=== PATIENT | female | born 1975 | race Caucasian/White ===

== ENCOUNTER 2023-12-03 16:07 | Outpatient (OUT) | payer BC, SELFPAY ==
--- NOTE | 2023-12-03 16:17 | XR_ITS ---
The [address] [address] Patient Name: SEE MACIEL MRN: [id number] date: 1975 Sex: F Assigned Patient Location: [facility] Current Patient Location: Accession/Order Number: [id number] Exam Date: 12/03/2023 16:18 Report Date: 12/04/2023 07:59 At the request of: NON-STAFF PHYSICIAN Procedure: XR lumbar spine 6V w bending EXAMINATION: XR lumbar spine 6V w bending HISTORY: lumbar back pain COMPARISON: No relevant comparison available. FINDINGS: BONES: Neutral projection demonstrates normal alignment with no acute fracture or spondylolisthesis. Minimal degenerative spondylosis. Moderate facet osteoarthropathy DISC SPACES: Normal. No significant disc height narrowing, subluxation, or endplate abnormality. PARASPINOUS: Negative. No paraspinous abnormality is seen. OTHER: No transient spondylolisthesis with flexion or extension. IUD in the pelvis. Moderate amount of stool right colon XR/XR lumbar spine 6V w bending IMPRESSION: Mild degenerative changes No dynamic instability Electronically authenticated by: MIRIAN HUIZAR Date: 12/04/2023 07:59
== END 2023-12-03 16:08 | disposition home or self-care (01) ==
LOC: RAD 16:12
DX: M54.50 Low back pain, unspecified (principal)
CPT/HCPCS: 72114

== ENCOUNTER 2024-12-23 16:11 | Outpatient (OUT) | payer BC, SELFPAY ==
--- NOTE | 2024-12-23 | XR_ITS ---
[place] [id number] Patient Name: SEE MACIEL MRN: [id number] date: 1975 Sex: F Assigned Patient Location: LAB Current Patient Location: LAB Accession/Order Number: [id number] Exam Date: 12/23/2024 16:52 Report Date: 12/23/2024 16:53 At the request of: CHRISTI GRUBER NP Procedure: XR knee RT 4V 4 views right knee plain film COMPARISON: None HISTORY: Right knee pain for one year ACUTE FINDINGS: No acute findings DEGENERATIVE CHANGE: Mild SOFT TISSUE FINDINGS: Unremarkable JOINT EFFUSION: None POSTOP CHANGES: None BONE MINERALIZATION: Adequate XR/XR knee RT 4V IMPRESSION: Mild degeneration Impression dictated by: Darien Miller M.D. 12/23/2024 4:53 PM Dictation Location: [place] [address] Electronically authenticated by: [id number] Y Date: 12/23/2024 16:53
--- OUTSIDE RECORDS SUMMARY | 2024-12-23 15:24 | XMS_ITS ---
Author Name Auto Generated Organization [facility] Care Team Providers Care Music Pastor Name Role Phone JAYLEEN GRUBER Attending Unavailabl JAYLEEN Reed Attending Unavaildarleen coy PROBLEMS No Problem Records Found PROCEDURES No Procedure Records Found RESULTS PATIENT EDUCATION Observed: 12/23/2024 4:20 PM Status: C Source: [facility] Patient Education Orthopedics How to Use Cold Therapy Cold therapy, or cryotherapy, is a treatment that uses cold temperatures to treat an injury or medical condition. It includes using cold packs or ice packs to reduce pain and swelling. Only use cold therapy if your doctor says it is okay. What are the risks? Generally, cold therapy is a safe treatment. However, it is not safe for: ??? People who are not able to say they are in pain. These include small children and people who have memory problems. ??? People who have certain conditions, such as: ? A problem in the vessels that slows blood flow to the fingers and toes (Raynaud's syndrome). ? Feeling very cold easily (cold hypersensitivity). ? Lack of feeling in the area being iced. Cold therapy may not be safe for people who have other conditions. Do not use it without talking to your doctor if you have: ??? A heart condition. ??? High blood pressure. ??? Open or healing wounds. ??? An infection. ??? Pain and swelling in your joints (rheumatoid arthritis). ??? Poor blood flow in the body. ??? Diabetes. ??? Certain skin conditions. How do I make a cold pack? When using a cold pack at home to reduce pain and swelling, you can use: ??? A silica gel cold pack that has been left in the freezer. You can buy this online or in stores. ??? A sealable plastic bag that has been filled with crushed ice. ??? A washcloth or paper towels soaked in cold water or ice water. ??? A plastic bag of frozen vegetables. Throw them away when you are finished using them as a cold pack. Supplies needed: ??? A cold pack. ??? A towel. This can be dry or damp, based on what you like. How to use cold therapy 1. Have your cold pack ready. 2. Place a towel between the cold pack and your skin. You may also wrap the cold pack in a towel. 3. Put the cold pack on the affected area. Keep it on for no more than 20 minutes at a time. 4. Check your skin after 5 minutes to make sure that there is no damage to the area. Check for: ??? White spots on your skin. Your skin may look blotchy or mottled. ??? Skin that looks blue or pale. ??? Skin that feels waxy or hard. 5. Repeat these steps as many times each day as told by your doctor. Take off the ice if your skin turns bright red. This is very important. If you cannot feel pain, heat, or cold, you have a greater risk of damage to the area. Always use a towel to avoid direct contact with your skin. Contact a doctor if: ??? You start to have white spots on your skin. This may give your skin a blotchy or mottled look. ??? Your skin turns blue or pale. ??? Your skin becomes waxy or hard. ??? Your swelling gets worse. Summary ??? Cold therapy, or cryotherapy, is used to treat an injury or other conditions. It includes using cold packs or ice packs to reduce pain and swelling. ??? Cold therapy is not safe for people who are not able to say they are in pain. ??? When using cold packs or ice packs, always place a towel between the cold source and your skin. ??? Check your skin after 5 minutes of icing it. This is to make sure that there is no skin damage. ??? Contact your doctor if you notice changes in your skin or your swelling gets worse. This information is not intended to replace advice given to you by your health care provider. Make sure you discuss any questions you have with your health care provider. Document Revised: 06/06/2021 Document Reviewed: 06/06/2021 [employer] Patient Education ? 2023 [employer].Chronic Knee Pain, Adult Knee pain that lasts longer than 3 months is called chronic knee pain. You may have pain in one or both knees. Symptoms of chronic knee pain may also include swelling and stiffness. The most common cause is age-related wear and tear (osteoarthritis) of your knee joint. Many conditions can cause chronic knee pain. Treatment depends on the cause. The main treatments are physical therapy and weight loss. It may also be treated with medicines, injections, a knee sleeve or brace, and by using crutches. Rest, ice, pressure (compression), and elevation, also known as RICE therapy, may also be recommended. Follow these instructions at home: If you have a knee sleeve or brace: ??? Wear the knee sleeve or brace as told by your doctor. Take it off only as told by your doctor. ??? Loosen it if your toes: ? Tingle. ? Become numb. ? Turn cold and blue. ??? Keep it clean. ??? If the sleeve or brace is not waterproof: ? Do not let it get wet. ? Ask your doctor if you may take it off when you take a bath or shower. If not, cover it with a watertight covering. Managing pain, stiffness, and swelling ??? If told, put heat on your knee. Do this as often as told by your doctor. Use the heat source that your doctor recommends, such as a moist heat pack or a heating pad. ? If you have a removable knee sleeve or brace, take it off as told by your doctor. ? Place a towel between your skin and the heat source. ? Leave the heat on for 20?30 minutes. ? Take off the heat if your skin turns bright red. This is very important. If you cannot feel pain, heat, or cold, you have a greater risk of getting burned. ??? If told, put ice on your knee. To do this: ? If you have a removable knee sleeve or brace, take it off as told by your doctor. ? Put ice in a plastic bag. ? Place a towel between your skin and the bag. ? Leave the ice on for 20 minutes, 2?3 times a day. ? Take off the ice if your skin turns bright red. This is very important. If you cannot feel pain, heat, or cold, you have a greater risk of damage to the area. ??? Move your toes often. ??? Raise the injured area above the level of your heart while you are sitting or lying down. Activity ??? Avoid activities where both feet leave the ground at the same time (high- impact activities). Examples are running, jumping rope, and doing jumping jacks. ??? Follow the exercise plan that your doctor makes for you. Your doctor may suggest that you: ? Avoid activities that make knee pain worse. You may need to change the exercises that you do, the sports that you participate in, or your job duties. ? Wear shoes with cushioned soles. ? Avoid sports that require running and sudden changes in direction. ? Do exercises or physical therapy. This is planned to match your needs and your abilities. ? Do exercises that increase your balance and strength, such as kiki chi and yoga. ??? Do not use your injured knee to support your body weight until your doctor says that you can. Use crutches as told by your doctor. ??? Return to your normal activities when your doctor says that it is safe. General instructions ??? Take xtsp-gsh-cumzkeg and prescription medicines only as told by your doctor. ??? If you are overweight, work with your doctor and a food expert (dietitian) to set goals to lose weight. Being overweight can make your knee hurt more. ??? Do not smoke or use any products that contain nicotine or tobacco. If you need help quitting, ask your doctor. ??? Keep all follow-up visits. Contact a doctor if: ??? You have knee pain that is not getting better or gets worse. ??? You are not able to do your exercises due to knee pain. Get help right away if: ??? Your knee swells and the swelling gets worse. ??? You cannot move your knee. ??? You have very bad knee pain. Summary ??? Knee pain that lasts more than 3 months is called chronic knee pain. ??? The main treatments for chronic knee pain are physical therapy and weight loss. You may also need to take medicines, wear a knee sleeve or brace, use crutches, and put ice or heat on your knee. ??? Lose weight if you are overweight. Work with your doctor and a food expert (dietitian) to help you set goals to lose weight. Being overweight can make your knee hurt more. ??? Follow the exercise plan that your doctor makes for you. This information is not intended to replace advice given to you by your health care provider. Make sure you discuss any questions you have with your health care provider. Document Revised: 01/02/2021 Document Reviewed: 01/03/2021 [employer] Patient Education ? 2023 [employer]. AMBULATORY VISIT SUMMARY Observed: 12/23 3:24 PM Status: F Source: [facility] Ambulatory Visit Summary SEE MACIEL :1975 Visit Date:12/23/2024 Ambulatory Visit Instructions Your Diagnosis Right knee pain Non-smoker Tests Performed XR Knee Complete 4+ Views Right -- Results Pending -- Please visit your patient portal for your results or contact your primary care physician. Your Care Team Attending Physician - CHRISTI GRUBER CNP Primary Care Physician - CHRISTI GRUBER CNP This Is Your Medications List esomeprazole (esomeprazole 20 mg Cap-DR) hyoscyamine ibuprofen (ibuprofen 800 mg Tab) tizanidine (tiZANidine 4 mg Tab) Discharge Vitals Temperature (Oral) 36.2 ???C Heart Rate (Peripheral) 80 Respiratory Rate 18 Blood Pressure 108/64 Height 158.0 cm Height 62 in Weight 60.9 kg Weight 134.261 lb BMI 24.4 What to do next Scheduled Follow-Up Appointments 2024 3:40 PM EDT With: CHRISTI GRUBER CNP Where: [facility] [place] [address] [place] [address]- You Need to Schedule the Following Appointments Follow Up with CHRISTI GRUBER CNP, FAM When: Within 2 weeks Comments: Right knee pain Where: [address] [place] [address] Business (1) Medications What How Much When Why Instructions Unchanged esomeprazole (esomeprazole 20 mg Cap-DR) See instructions TAKE 1 CAPSULE BY MOUTH EVERY DAY Unchanged hyoscyamine Unchanged ibuprofen (ibuprofen 800 mg Tab) See instructions TAKE 1 TABLET BY MOUTH THREE TIMES A DAY Unchanged tizanidine (tiZANidine 4 mg Tab) 1 Tablets By Mouth Every 8 hours Encounter to establish care BMI 24.0-24.9, adult Allergies No Known Medication Allergies Problems Ongoing - Any problem that you are currently receiving treatment for. BMI 24.0-24.9, adult Low back pain Patient Survey You may receive a survey via text or e-mail asking about your office visit. Please share your experience with us by completing your survey. We appreciate your feedback and thank you for choosing us for your care. FAMILY MEDICINE OFFICE/CLINI C NOTE Observed: 12/23/2024 3:24 PM Status: F Source: [facility] Family Medicine Office/Clini c Note Chief Complaint The patient presents for evaluation of right knee pain. HPI Staff See is a 49 year old male presenting with right knee pain Onset: last year Location: right knee Relieved by: Motrin, knee brace wore up until 6 weeks ago she said it feels more stable has had swollen in the past but this has went down a little bit she dx with sciatica she is not sure if this is the cause of this, this did happen last year about this time... she waiting so long because she said she could not get out of work I have reviewed and verified the staff HPI to be accurate for this encounter. History of Present Illness 49-year-old female presenting with right knee pain, which began approximately one year ago and is aggravated by her work schedule, which does not allow for rest or vacation days. She describes her pain as a pulling sensation across the top of her knee, sometimes causing her whole leg to swell in earlier phases. The patient has been using 800 mg of ibuprofen three times per day during work hours. She reports that previously the pain was severe enough to cause concern for knee instability, although her current status reflects improvement with prescribed ibuprofen. She did not report any specific knee injury or other trauma. There is a suspected link to possible sciatic nerve involvement or degenerative conditions, though initial focus remains on the knee. The patient has tried heat applications without relief, and has not had consistent time to apply ice therapy. Review of Systems PHQ Score Initial Depression Screen Score: 6 SCORE Detailed Depression Screen Score: 15 Total Depression Screen Score: 21 - General: Denies other associated symptoms like systemic pain or fever. - Musculoskeletal: Reports right knee pain, previously associated with swelling and a pulling sensation localized at the top of the knee. Denies any significant knee injury or trauma. - Neurological: Reports concern about potential sciatic involvement. Physical Exam Vitals & Measurements T: 36.2 ???C(Oral) HR: 80(Peripheral) RR: 18 BP: 108/64 SpO2: 99% HT: 62 in HT: 158.0 cm WT: 134.261 lb WT: 60.9 kg BMI: 24.4 General: alert, no acute distress Skin: warm, dry Head: no trauma, normocephalic Neck: Trachea midline, no adenopathy, no tenderness Cardiovascular: regular rate and rhythm, normal peripheral perfusion Respiratory: Lungs CTA, respirations non labored Back: No tenderness, Normal ROM, Normal alignment. Extremities: no deformity, no trauma Neurological: oriented x 4, LOC appropriate for age speech normal Assessment/Plan 1. Right knee pain (M25.561: Pain in right knee) - Arrange for an X-ray of the right knee to investigate underlying causes. - Continue ibuprofen 800 mg three times daily; advised to extend intervals between doses. - Educate on symptomatic relief using heat and ice. - Explore further evaluation including back assessment if knee imaging is normal. - f/u in 2 weeks Ordered: XR Knee Complete 4+ Views Right 2. Non-smoker (Z78.9: Other specified health status) Encourage to continue as a non-smoker Follow-up With When Contact Information YASMANI CLEMENS, CHRISTI Raymond, JONATHAN Within 2 weeks [address] [place] [address] [employer] (1) Additional Instructions: Right knee pain Patient Education How to Use Cold Therapy, Tjhy-yl-Bftn Chronic Knee Pain, Adult, Lntf-ka-Hwtx Problem List/Past Medical History Ongoing BMI 24.0-24.9, adult Low back pain Historical No qualifying data Medications esomeprazole 20 mg Cap-DR, See Instructions hyoscyamine ibuprofen 800 mg Tab, See Instructions tiZANidine 4 mg Tab, 4 mg= 1 tab(s), Oral, q8hr, Not taking Allergies No Known Medication Allergies Social History Alcohol Current, Wine, 1-2 times per year, 12/23/2024 Current. Wine. 1-2 times per year., 12/23/2024 Substance Abuse - Denies Substance Abuse, 10/21/2023 Never, 12/23/2024 Tobacco Never (less than 100 in lifetime) Tobacco Use:., 12/23/2024 Result Comment: Electronical ly Signed By: CHRISTI GRUBER CNP\Date and Time Signed: 12/23/24 16:21 EDT ALLERGIES DATE TYPE / CODE NAME / CODE REACTION SEVERITY SOURCE Miscellaneous Allergy/[id number](SNOMED CT) No Known Medication Allergies [facility] ENCOUNTERS ADMIT/DISCHARGE ACCOUNT NUMBER ADMITTING ENCOUNTER CLASS LOC ATION SOURCE 12/23/2024 [id number] [facility] CD:[id number] [facility] 04/15/2024 [id number] Ambulatory [facility] PAYERS ENCOUNTER GUARANTOR PAYER SUBSCRIBER SOURCE 12/23/2024 SEE JACK: KALLIE CÁRDENASTel: ~~(41 (HP) Primary Insurance:Renita martin Number: [id number] tive Date:[id number] [place] [address] [id number]: [facility] 04/15/2024 SEE JACK: KALLIE CÁRDENASTeoscar: (HP) Primary Insurance:Renita martin Number: [id number] tive Date:[id number] [place] [address] [id number]: [facility]
--- OUTSIDE RECORDS SUMMARY | 2024-12-23 16:15 | XMS_ITS | Clinical Summary ---
Author Organization [facility] Address [address] [place] [address] Care Team Providers Care Front Office Java Developer Name Role Phone Unavailable Primary Care Provider Unavailabl e Social History Tobacco Use Types Packs/Day Years Used Date Smoking Tobacco: Never Assessed Comments Unknown Sex and Gender Information Value Date Recorded Sex Assigned at Not on file Legal Sex Female 7:13 PM EDT Gender Identity Female 10/16/2022 7:13 PM EDT Sexual Orientation Not on file Last Filed Vital Signs Vital Sign Reading Time Taken Comments Blood Pressure 110/68 12/16/2022 12:00 PM EDT Pulse - - Temperature - - Respiratory Rate - - Oxygen Saturation - - Inhaled Oxygen Concentration - - Weight 53.5 kg (118 lb) 12/16/2022 12:00 PM EDT Height 156.2 cm (5' 1.5 ) 12/16/2022 12:00 PM ED T Body Mass Index 21.93 12/16/2022 12:00 PM EDT Plan of Treatment Not on file Insurance [facility]
== END 2024-12-23 16:12 | disposition home or self-care (01) ==
LOC: LAB 16:12
PROVIDERS: PCP Nurse Practitioner Family; Visit Provider Nurse Practitioner Family
DX: M25.561 Pain in right knee (principal)
CPT/HCPCS: 73564